=== PATIENT | female | born 1990 | race Two or more races ===

== ENCOUNTER 2022-12-25 19:16 | Emergency (ER) | payer MEDICAID ==
[~2022-12-25] VITALS: Ht 165.1 cm; Wt 91.0 kg
[~2022-12-25 19:16] MED LIST: ABILIFY; ALBUPOW26; CELEXA; LAM100T OR; QVAR; RISP2TAB62 OR; RISP3TAB44 OR; SERT100T OR
[2022-12-25] MEDS ORDERED: ONDANSETRON ODT 4 MG TAB PO ONE (19:45)
[2022-12-25] MEDS ORDERED: SODIUM CHLORIDE 0.9% 1,000 ML IV ONE (19:45)
[2022-12-25 20:23] LABS: Basophils # (auto) 0 10 ^3/uL (0-0.2); Basophils % (auto) 0.3 % (0.0-2.0); Eosinophils # (auto) 0.4 10 ^3/uL (0-0.8); Hemoglobin 13.1 g/dL (12.2-16.2); Monocytes # (auto) 0.7 10 ^3/uL (0-1.3)
[2022-12-25 20:26] LABS: Eosinophils % (auto) 3.2 % (0.0-7.0); Hematocrit 40.7 % (36.0-46.0); Mean Corpuscular Hgb Conc. 32.2 g/dL (32.0-36.0); Mean Corpuscular Volume 80.9 fL (80.0-100.0); Monocytes % (auto) 5.5 % (0.0-12.0); Neutrophils # (auto) 10.5 10 ^3/uL (1.6-8.6); Red Blood Cells 5.03 10^6/uL (4.0-5.20); Red Cell Distribution Width 17.2 % (11.8-14.3); White Blood Cell 12.7 10^3/uL (4.4-10.8)
[2022-12-25 20:38] LABS: Alanine Aminotransferase 67 U/L (7-40); Albumin 4.8 g/dL (3.2-4.8); Alkaline Phosphatase 57 U/L (46-116); Aspartate Aminotransferase 37 U/L (13-40); BUN/Creatinine Ratio 13.2 (10.0-20.0); Bilirubin, Total 0.4 mg/dL (0.2-1.0); Blood Urea Nitrogen 10 mg/dL (9-23); Calcium 9.2 mg/dL (8.5-10.1); Chloride 107 mmol/L (98-107); Glucose 94 mg/dL (74-106); Lipase 40 U/L (12-53); Magnesium 1.8 mg/dL (1.6-2.6); Potassium 3.6 mmol/L (3.5-5.1); Sodium 140 mmol/L (136-145)
[2022-12-25 22:37] LABS: Urine Bacteria FEW /hpf (None Seen); Urine Blood TRACE /uL (Negative); Urine Clarity Clear (Clear); Urine Color Yellow (Yellow); Urine Mucus FEW (None Seen); Urine Protein, UAD 1+ (Negative); Urine Specific Gravity 1.035 (1.001-1.035); Urine Urobilinogen Normal (Negative); Urine WBC 2 /hpf (0 - 5); Urine pH 5.5 (5.0-8.0)
[2022-12-26 00:34] LABS: COVID19 ANTIGEN SOFIA FIA NEGATIVE (NEGATIVE)
[2022-12-26] MEDS ORDERED: ZOFR4T PO (01:34)
[2022-12-26] MEDS ORDERED: CEPH500C PO (01:35)
[2022-12-26 03:00] VITALS: BP 114/60; PULSE 101; RESP 18; TEMP 98.9; O2SAT 99
== END 2022-12-26 03:04 | disposition home or self-care (01) ==
LOC: ER 19:16 → EDBD 19:16 → ER 12-26 03:04
DX: N39.0 Urinary tract infection, site not specified (principal); R10.2 Pelvic and perineal pain; R11.2 Nausea with vomiting, unspecified; R19.7 Diarrhea, unspecified; J45.909 Unspecified asthma, uncomplicated; Z79.899 Other long term (current) drug therapy; Z20.822 Contact with and (suspected) exposure to COVID-19
CPT/HCPCS: 36415; 80053; 81001; 81025; 83605; 83690; 83735; 84702; 85025; 87045; 87177; 87426; 87427; 96360; 96361; 99283; J7030; Q0162

== ENCOUNTER 2023-04-13 07:02 | Emergency (ER) | payer MEDICAID ==
[~2023-04-13] VITALS: Ht 162.6 cm; Wt 94.9 kg
[~2023-04-13 07:02] MED LIST changes: +CEPH500C PO; +ZOFR4T PO
[2023-04-13] MEDS ORDERED: ACET-1304 PO (07:53)
[2023-04-13 08:00] VITALS: BP 142/86; PULSE 81; RESP 18; TEMP 98.3; O2SAT 97
[2023-04-13] MEDS ORDERED: ACETAMINOPHEN 500 MG TAB PO ONE (08:00)
== END 2023-04-13 08:22 | disposition home or self-care (01) ==
LOC: ER 07:02
DX: H66.92 Otitis media, unspecified, left ear (principal); F41.9 Anxiety disorder, unspecified; F32.9 Major depressive disorder, single episode, unspecified; Z79.899 Other long term (current) drug therapy

== ENCOUNTER 2023-06-13 07:14 | Emergency (ER) | payer MEDICAID ==
[~2023-06-13] VITALS: Ht 162.6 cm; Wt 102.0 kg
[~2023-06-13 07:14] MED LIST changes: +ACET-1304 PO
[2023-06-13 08:22] LABS: Basophils # (auto) 0 10 ^3/uL (0-0.2); Eosinophils # (auto) 0.1 10 ^3/uL (0-0.8); Lymphocytes # (auto) 1.6 10 ^3/uL (0.4-5.4); Monocytes # (auto) 0.7 10 ^3/uL (0-1.3); Neutrophils % (auto) 86.2 % (37.0-80.0)
[2023-06-13 08:24] LABS: Basophils % (auto) 0.3 % (0.0-2.0); Eosinophils % (auto) 0.7 % (0.0-7.0); Hematocrit 38.8 % (36.0-46.0); Hemoglobin 12.7 g/dL (12.2-16.2); Mean Corpuscular Hgb Conc. 32.6 g/dL (32.0-36.0); Mean Corpuscular Volume 82.8 fL (80.0-100.0); Monocytes % (auto) 3.8 % (0.0-12.0); Neutrophils # (auto) 15.3 10 ^3/uL (1.6-8.6); Red Blood Cells 4.69 10^6/uL (4.0-5.20); White Blood Cell 17.8 10^3/uL (4.4-10.8)
[2023-06-13 08:34] LABS: Chloride 107 mmol/L (98-107); Potassium 4.4 mmol/L (3.5-5.1); Sodium 141 mmol/L (136-145)
[2023-06-13 08:35] LABS: Anion Gap 8 (5-15); Calcium 9.5 mg/dL (8.5-10.1); Carbon Dioxide 26 mmol/L (20-30)
[2023-06-13 08:40] LABS: BUN/Creatinine Ratio 12.2 (10.0-20.0); Blood Urea Nitrogen 9 mg/dL (9-23); Glucose 95 mg/dL (74-106)
[2023-06-13] MEDS: IOHEXOL 350 MG/ML 100ML IJ ONE (11:08)
[2023-06-13] MEDS ORDERED: AZIT1POW PO (11:39)
[2023-06-13] MEDS ORDERED: METH4PAK PO (11:41)
[2023-06-13] MEDS: AZITHROMYCIN 500MG/ 250ML 250 ML IV ONE (13:46)
[2023-06-13 16:13] VITALS: BP 110/77; PULSE 113; RESP 17; TEMP 99.1; O2SAT 96
== END 2023-06-13 16:16 | disposition home or self-care (01) ==
LOC: ER 07:14
DX: J18.9 Pneumonia, unspecified organism (principal); D72.829 Elevated white blood cell count, unspecified; J45.909 Unspecified asthma, uncomplicated
CPT/HCPCS: 36415; 71275; 80048; 84484; 85025; 85379; 93005; 96365; 96366; 99285; J0456; Q9967

== ENCOUNTER 2024-04-19 01:52 | Emergency (ER) | payer MEDICAID ==
[~2024-04-19] VITALS: Ht 162.6 cm; Wt 92.8 kg
[~2024-04-19 01:52] MED LIST changes: +AZIT1POW PO; +METH4PAK PO
[2024-04-19] MEDS ORDERED: PROM1SOL4 PO (03:07)
[2024-04-19] MEDS ORDERED: IBUP-1455 PO (03:07)
--- NOTE | 2024-04-19 03:08 | ED.PDOC ---
Eye-HPI HPI Comments 33-year-old female complaining of headache fever and sore throat x1 day. No new foods no new medications. No recent travel. States he has been having nonproductive cough and nasal congestion as well. [id number] [place] cold not helping. Chief Complaint: Sore Throat Time Seen by MD: 02:34 Primary Care Provider: ELAINE Reviewed Notes: Nurses Notes Allergies: Coded Allergies: NO KNOWN ALLERGIES (Unverified , 03/24/10) Home Meds Active Scripts Methylprednisolone (Medrol Dosepak) 4 Mg [place], 4 MG PO UD, #21 TAB UAD Prov:AMY MCGILL MD 06/13/23 Azithromycin (Zithromax) 1 Gm Pow, 1 PACK PO ONCE, #1 PACK Prov:AMY MCGILL MD 06/13/23 Acetaminophen (Tylenol Extra Strength Fo) 500 Mg Tab, 650 MG PO TID, #30 TAB Prov:REMINGTON RENDON 04/13/23 Cephalexin Monohydrate (Cephalexin) 500 Mg Cap, 500 MG PO Q8HR for 7 Days, #21 CAP Prov:RYAN ANTHONY DO 12/26/22 Ondansetron Odt 4MG Tab (ZOFRAN PO) 4 Mg Tb, 4 MG PO Q8HPRN PRN for 3 Days, #9 TAB ODT TAB-DISSOLVE IN MOUTH, THEN SWALLOW Prov:RYAN ANTHONY DO 12/26/22 Reported Medications Risperidone (Risperidone) 2 Mg Tab, 2 MG OR QHS 04/01/11 Risperidone (Risperidone) 3 Mg Tab, 3 MG OR BID 04/01/11 Sertraline Hcl (Zoloft) 100 Mg Tab, 100 MG OR QAM 04/01/11 Lamotrigine (Lamictal) 100 Mg Tab, 100 MG OR QHS 04/01/11 [Celexa] No Conflict Check 10/02/10 [Abilify] No Conflict Check 10/02/10 [Qvar] No Conflict Check 03/24/10 Albuterol (Albuterol) Pow 03/24/10 Information Source: Patient Mode of Arrival: Ambulatory Past Medical History PAST MEDICAL HISTORY: Anxiety, Asthma, Depression Surgical History: Hernia Repair 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 PLACEMENT COORDINATOR Hx Family History Family History: Family hx of DM, Family hx of Cancer Social History Smoker: Non-Smoker Alcohol: Denies ETOH Use Drugs: Denies Drug Use Lives In: Home Constitutional: reports: fever; denies: chills, diaphoresis, fatigue, malaise, sweats, weakness, others EENTM: reports: nose congestion, throat pain; denies: blurred vision, double vision, ear bleeding, ear discharge, ear drainage, ear pain, ear ringing, eye pain, eye redness, hearing loss, mouth pain, mouth swelling, nasal discharge, nose bleeding, nose pain, photophobia, tearing, throat swelling, voice changes, others Respiratory: reports: cough Cardiovascular: denies: chest pain, dizzy spells, diaphoresis, Dyspnea on exertion, edema, irregular heart beat, left arm pain, lightheadedness, palpitations, PND, syncope, others Gastrointestinal: denies: abdomen distended, abdominal pain, blood streaked bowels, constipated, diarrhea, dysphagia, difficulty swallowing, hematemesis, melena, nausea, poor appetite, poor fluid intake, rectal bleeding, rectal pain, vomiting, others Genitourinary: denies: abnormal vagina bleeding, burning, dyspareunia, dysuria, flank pain, frequency, hematuria, incontinence, pain, , vagina discharge, urgency, others Neurological: denies: dizziness, fainting, headache, left sided numbness, left sided weakness, numbness, paresthesia, pre-existing deficit, right sided numbness, right sided weakness, seizure, speech problems, tingling, tremors, weakness, others Musculoskeletal: denies: back pain, gout, joint pain, joint swelling, muscle pain, muscle stiffness, neck pain, others Integumetry: denies: bruises, change in color, change in hair/nails, dryness, laceration, lesions, lumps, rash, wounds, others Allergic/Immunocompromised: denies: Difficulty Healing, Frequent Infections, Hives, Itching, others Hematologic/Lymphatic: denies: anemia, blood clots, easy bleeding, easy bruising, swollen glands, others Physical Exam General Appearance: No Apparent Distress, Normal HEENT: Normal ENT Inspection, Pharynx Normal, TMs Normal Neck: Full Range of Motion, Non-Tender, Normal, Normal Inspection Respiratory: Chest Non-Tender, Lungs Clear, No Accessory Muscle Use, No Respiratory Distress, Normal Breath Sounds Cardiovascular: No Edema, No JVD, No Murmur, No Gallop, Normal Peripheral Pulses, Regular Rate/Rhythm Breast Exam: Deferred Gastrointestinal: No Organomegaly, Non Tender, No Pulsatile Mass, Normal Bowel Sounds, Soft Genitalia: Deferred Pelvic: Deferred Rectal: Deferred Extremities: No calf tenderness, Normal capillary refill, Normal inspection, Normal range of motion, Non-tender, No pedal edema Musculoskeletal : Apperance: Normal Neurologic: Alert, blister pack operator II-XII nml as Tested, No Motor Deficits, Normal Affect, Normal Mood, No Sensory Deficits Cerebellar Function: Normal Reflexes: Normal Skin: Dry, Normal Color, Warm Lymphatic: No Adenopathy Was a procedure done? Was a procedure done?: No EENT DIFF Eye: N/A Ear: Otitis Media Sore Throat: Peritonsillar Abscess, Peritonsillar Cellulitis, Pharyngitis X-Ray, Labs, Meds, VS Vital Signs Date Time Temp Pulse Resp B/P (MAP) Pulse Ox O2 Delivery O2 Flow Rate FiO2 04/19/24 02:40 97.8 100 18 130/86 (101) 97 X-Ray, Labs, Meds, VS Comment Imaging: X-rays and CT scans were reviewed and interpreted by this provider, imaging shows no fractures and no pathological disease. Pending radiology review. Laboratory: Labs reviewed and interpreted by this provider. No significant abnormalities noted. Patient has prior medical visits reviewed. Med reconciliation performed Vital signs reviewed Time of 1ST Reevaluation: 03:07 Reevaluation 1ST: Improved Patient Education/Counseling: Diagnosis, Treatment, Need For Follow Up (Patient advised to follow-up in the emergency room in the next 24 to 48 hours if symptoms do not improve. Advised follow-up with PCP in the next 3 to 5 days. Patient verbalized understanding. ) Family Education/Counseling: Diagnosis, Treatment Departure 1 Departure Time of Disposition: 03:06 Impression: Primary Impression: Pharyngitis with viral syndrome Disposition: HOME / SELF CARE / HOMELESS Condition: Fair e-Prescriptions Promethazine-Dm (Promethazine Dm 6.25-15 mg/5Ml) 1 Barbara Barbara 5 ML PO TID PRN, #240 ML Prov: WILLIE GARCIA SHELL ASSEMBLER 04/19/24 Ibuprofen Micronized (Ibuprofen) 800 Mg Tab 800 MG PO TID PRN, #30 TAB Prov: GARCIAWILLIE WALKER 04/19/24 Discharged With: Self Critical Care Note Critical Care Time?: No Stability Stability form required: No Heart Score Heart Score: Heart Score Response (Comments) Value History N/A 0 EKG N/A 0 Age N/A 0 Risk Factors N/A 0 Troponin N/A 0 Total 0 WILLIE GARCIA Apr 19, 2024 03:08
[2024-04-19 06:18] LABS: Rapid Influenza A Negative (Negative); Rapid Influenza B Negative (Negative)
[2024-04-19 06:19] LABS: COVID19 ANTIGEN SOFIA FIA NEGATIVE (NEGATIVE)
[2024-04-19 07:47] VITALS: BP 157/86; PULSE 110; RESP 17; TEMP 99; O2SAT 95
== END 2024-04-19 07:41 | disposition home or self-care (01) ==
LOC: ER 01:52
DX: B34.9 Viral infection, unspecified (principal); J02.9 Acute pharyngitis, unspecified; J45.909 Unspecified asthma, uncomplicated; F41.9 Anxiety disorder, unspecified; F32.A Depression, unspecified; Z79.51 Long term (current) use of inhaled steroids; Z79.899 Other long term (current) drug therapy; Z98.890 Other specified postprocedural states; Z20.822 Contact with and (suspected) exposure to COVID-19
CPT/HCPCS: 36415; 87426; 87804

== ENCOUNTER 2025-04-10 06:15 | Inpatient (IN) | payer MEDICAID ==
[~2025-04-10] VITALS: Ht 165.1 cm; Wt 93.3 kg
[~2025-04-10 06:15] MED LIST changes: +IBUP-1455 PO; +PROM1SOL4 PO
--- NOTE | 2025-04-10 06:46 | ED.PDOC ---
SOB-HPI HPI Comments This is a 34 year old female presenting to the ED with chief complaint of SOB. Patient reports that she has been experiencing SOB for the past week. Patient relays that she has history of asthma, but since changing PCPs, she has been unable to get another inhaler prescription. Patient denies any chest pain, fever, chills, N/V/D, or abdominal pain. 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 MACHINERY RIGGER Hx Family History Family History: Reviewed,noncontributory to illness, Family hx of DM, Family hx of Cancer Social History Smoker: Non-Smoker Alcohol: Denies ETOH Use Drugs: Denies Drug Use Lives In: Home Constitutional: denies: chills, diaphoresis, fatigue, fever, malaise, sweats, weakness, others EENTM: denies: blurred vision, double vision, ear bleeding, ear discharge, ear drainage, ear pain, ear ringing, eye pain, eye redness, hearing loss, mouth pain, mouth swelling, nasal discharge, nose bleeding, nose congestion, nose pain, photophobia, tearing, throat pain, throat swelling, voice changes, others Respiratory: reports: shortness of breath; denies: cough, hemoptysis, orthopnea, SOB at rest, SOB with excertion, stridor, wheezing, others Cardiovascular: denies: chest pain, dizzy spells, diaphoresis, Dyspnea on exertion, edema, irregular heart beat, left arm pain, lightheadedness, palpitations, PND, syncope, others Gastrointestinal: denies: abdomen distended, abdominal pain, blood streaked bowels, constipated, diarrhea, dysphagia, difficulty swallowing, hematemesis, melena, nausea, poor appetite, poor fluid intake, rectal bleeding, rectal pain, vomiting, others Genitourinary: denies: abnormal vagina bleeding, burning, dyspareunia, dysuria, flank pain, frequency, hematuria, incontinence, pain, , vagina discharge, urgency, others Neurological: denies: dizziness, fainting, headache, left sided numbness, left sided weakness, numbness, paresthesia, pre-existing deficit, right sided numbness, right sided weakness, seizure, speech problems, tingling, tremors, weakness, others Musculoskeletal: denies: back pain, gout, joint pain, joint swelling, muscle pain, muscle stiffness, neck pain, others Integumetry: denies: bruises, change in color, change in hair/nails, dryness, laceration, lesions, lumps, rash, wounds, others Allergic/Immunocompromised: denies: Difficulty Healing, Frequent Infections, Hives, Itching, others Hematologic/Lymphatic: denies: anemia, blood clots, easy bleeding, easy bruising, swollen glands, others Endocrine: denies: excessive hunger, excessive sweating, excessive thirst, excessive urination, flushing, intolerance to cold, intolerance to heat, unexplained weight gain, unexplained weight loss, others Psychiatric: denies: anxiety, bipolar disorder, depression, hopeless, panic disorder, schizophrenia, sleepless, suicidal, others All Other Systems: Reviewed and Negative Physical Exam General Appearance: Moderate Distress, Normal HEENT: Normal ENT Inspection, Pharynx Normal, TMs Normal Neck: Full Range of Motion, Non-Tender, Normal, Normal Inspection Respiratory: Chest Non-Tender, No Accessory Muscle Use, No Respiratory Distress, Other (Coarse breath sounds) Cardiovascular: No Edema, No JVD, No Murmur, No Gallop, Normal Peripheral Pulses, Regular Rate/Rhythm Breast Exam: Deferred Gastrointestinal: No Organomegaly, Non Tender, No Pulsatile Mass, Normal Bowel Sounds, Soft Genitalia: Deferred Pelvic: Deferred Rectal: Deferred Extremities: No calf tenderness, Normal capillary refill, Normal inspection, Normal range of motion, Non-tender, No pedal edema Musculoskeletal : Apperance: Normal Neurologic: Alert, eap clinician II-XII nml as Tested, No Motor Deficits, Normal Affect, Normal Mood, No Sensory Deficits Cerebellar Function: Normal Reflexes: Normal Skin: Dry, Normal Color, Warm Peripheral Pulses: 3+ Radial (R), 3+ Radial (L) Lymphatic: No Adenopathy Was a procedure done? Was a procedure done?: No Differential Dx Differential Diagnosis: Anxiety, Asthma, Bronchitis, Pneumonia, URI X-Ray, Labs, Meds, VS Vital Signs Date Time Temp Pulse Resp B/P (MAP) Pulse Ox O2 Delivery O2 Flow Rate FiO2 04/10/25 06:17 98.2 154 22 132/88 95 98.2 Lab Test 04/10/25 06:51 Range/Units D-Dimer, Quantitative 1.43 H 0.0-0.49 mg/L FEU Patient alert pain Complaining of shortness a breath. Saturation pristine on room air. Moving air. She mentally challenged. Chronic condition. Explained to the patient. Continue monitoring. [place] [address] Ph: [phone] DIAGNOSTIC IMAGING Diagnostic Imaging Report : [id number] Signed PATIENT: AYLA BORDEN ACCT: [id number] UNIT: [id number] : 1990 LOC: ER ROOM / BED: / AGE / SEX: 34 / F ADM STATUS: REG ER SERVICE 7 ORDERING PHYSICIAN: KRISTY RAMACHANDRAN MD PROCEDURE(s): CXRP - CHEST PORTABLE REASON: sob ORDER NUMBER(s): [id number], ACCESSION NUMBER(s): [id number] CHEST RADIOGRAPH INDICATION: sob TECHNIQUE: Single frontal view of the chest was obtained. COMPARISON: CT CT ANGIO CHEST CONTRAST on DOS: 06/13/23 FINDINGS: No focal consolidation. No significant pleural effusion. No pneumothorax. Stable cardiomediastinal silhouette. IMPRESSION: No acute pulmonary process. ATED BY: MORGAN BUCKNER MD DICTATED DATE/TIME: 04/10/25738 SIGNED BY: MORGAN BUCKNER MD SIGNED DATE/TIME: 04/10/25738 CC: Images Reviewed?: Images reviewed and evaluated by me Time of 1ST Reevaluation: 07:45 Reevaluation 1ST: Improved Patient Education/Counseling: Diagnosis, Treatment Family Education/Counseling: Diagnosis, Treatment SEPSIS Sepsis Screen Date sepsis recognized/suspect: Apr 10, 2025 Time Sepsis recognized/suspect: 620 Recent Procedure: No On Antibiotic Therapy: No Respiratory Rate >20: Yes Heart Rate >90: Yes Temp<36 C (96.8 F) or >38.3 C: No SBP <90 or MAP <65 mmHG: No New Acute Mental Status Change: No Is the patient on CPAP, BIPAP,: No Physician Orders Chest Portable (04/10/25 06:38) Complete Blood Count (04/10/25 08:04) Urinalysis (04/10/25 08:04) Basic Metabolic Panel (04/10/25 08:04) Ct Angio Chest Contrast (04/10/25 08:04) Vital Signs Date Time Temp Pulse Resp B/P (MAP) Pulse Ox O2 Delivery O2 Flow Rate FiO2 04/10/25 06:17 98.2 154 22 132/88 95 98.2 Departure 1 Departure Time of Disposition: 07:20 Impression: Primary Impression: Pneumonitis Additional Impression: Asthma exacerbation Qualified Codes: J45.41 - Moderate persistent asthma with (acute) exacerbation Disposition: ADMITTED INPATIENT Admit to: Med Surg Condition: Guarded Critical Care Note Critical Care Time?: No Stability Stability form required: No Heart Score Heart Score: Heart Score Response (Comments) Value History N/A 0 EKG N/A 0 Age N/A 0 Risk Factors N/A 0 Troponin N/A 0 Total 0 I personally scribed for KRISTY RAMACHANDRAN MD ([email or web address]) on 04/10/25 at 06:46. Electronically submitted by Mikey Esquivel ([email or web address]). I personally scribed for KRISTY RAMACHANDRAN MD ([email or web address]) on 04/10/25 at 07:57. Electronically submitted by Mikey Esquivel ([email or web address]). KRISTY RAMACHANDRAN MD Apr 10, 2025 06:46
--- NOTE | 2025-04-10 07:41 | DVH ---
CHEST RADIOGRAPH INDICATION: sob TECHNIQUE: Single frontal view of the chest was obtained. COMPARISON: CT CT ANGIO CHEST CONTRAST on DOS: 06/13/23 FINDINGS: No focal consolidation. No significant pleural effusion. No pneumothorax. Stable cardiomediastinal silhouette. IMPRESSION: No acute pulmonary process.
[2025-04-10 08:11] LABS: Hematocrit 35.2 % (36.0-46.0); Hemoglobin 11.4 g/dL (12.2-16.2)
[2025-04-10 08:12] LABS: Chloride 102 mmol/L (98-107); Potassium 3.8 mmol/L (3.5-5.1); Sodium 140 mmol/L (136-145)
[2025-04-10 08:13] LABS: Anion Gap 11 (5-15); Calcium 9.3 mg/dL (8.7-10.4); Carbon Dioxide 27 mmol/L (20-31); Mean Corpuscular Hemoglobin 24.7 pg (28.0-32.0); Mean Corpuscular Volume 76.5 fL (80.0-100.0); Nucleated Red Blood Cells % 0.0 %
[2025-04-10 08:18] LABS: BUN/Creatinine Ratio 8.0 (10.0-20.0); Blood Urea Nitrogen 6 mg/dL (9-23); Glucose 122 mg/dL (74-106)
[2025-04-10] MEDS: ACETAMINOPHEN 325 MG TAB PO ONE (08:34)
[2025-04-10] MEDS: ALBUTEROL SULF 2.5 MG/0.5ML(0.5%) NEB SOLN NEB ONE (08:36)
[2025-04-10] MEDS: IPRATROPIUM BROM 0.5 MG/2.5ML INH SOL NEB ONE (08:36)
[2025-04-10] MEDS: SODIUM CHLORIDE 0.9% 1,000 ML IV ONE ×2 (08:55→11:35)
[2025-04-10] MEDS: AZITHROMYCIN 500MG/250ML 250 ML IV ONE (09:28)
[2025-04-10] MEDS ORDERED: MORPHINE SULFATE INJ 2 MG/ml SYRG IV PRN (09:45)
[2025-04-10] MEDS: IOHEXOL 350 MG/ML 100ML IJ ONE (09:45)
[2025-04-10] MEDS ORDERED: ONDANSETRON HCL 4 MG/2 ML VIAL IV PRN (09:45)
[2025-04-10] MEDS ORDERED: NITROGLYCERIN 0.4 MG SL TAB SL PRN (09:45)
[2025-04-10] MEDS: ALBUTEROL SULF 2.5 MG/0.5ML(0.5%) NEB SOLN NEB SCH (10:00)
[2025-04-10 10:16] LABS: Urine Protein, UAD Negative (Negative)
[2025-04-10 10:21] LABS: Alanine Aminotransferase 29 U/L (7-40); Albumin 4.5 g/dL (3.2-4.8); Alkaline Phosphatase 71 U/L (46-116); Total Protein 7.8 g/dL (5.7-8.2)
[2025-04-10 10:22] LABS: Bilirubin, Direct < 0.1 mg/dL (<0.3); Bilirubin, Total 0.3 mg/dL (0.2-1.0)
--- NOTE | 2025-04-10 10:27 | DVH ---
CT angiogram of the chest INDICATION: Shortness of breath. Rule out pulmonary embolism TECHNIQUE: Serial axial images were performed through the chest using 3 mm slice thickness and interval following the administration of 100 mL of Omnipaque 350 IV contrast. Multiplanar MIP reconstruction imaging was provided and reviewed at the workstation FINDINGS: On lung windows there is some infiltrate present in the right middle lobe and in the left lower lobe The heart size is enlarged without pericardial effusion No filling defects in the central branches of the pulmonary arteries. No enlarged axillary hilar or mediastinal lymph nodes. Images of the upper abdomen reveal no bony abnormalities IMPRESSION: 1. No central pulmonary emboli 2. Right middle lobe and left lower lobe infiltrates. Computed Tomographic Radiation Dosimetry Report: Total CTDI vol = 26 mGy Total DLP = 870 mGy-cm All CT scans at this medical facility are performed using dose modulation techniques as appropriate to a performed exam including the following: Automated exposure control was utilized; adjustment of the MA and/or KvP according to patient size; and use of iterative reconstruction technique.
[2025-04-10 10:29] LABS: Opiate Scree,Urine Neg (NEGATIVE)
[2025-04-10 10:37] LABS: Amphetamine Screen, Urine Neg (NEGATIVE); Barbiturate Scree,Urine Neg (NEGATIVE); Benzodiazephine Screen, Urine Neg (NEGATIVE); Cannabinoid Screen, Urine Neg (NEGATIVE); Cocaine Screen, Urine Neg (NEGATIVE); Phencyclidine Screen, Urine Neg (NEGATIVE)
[2025-04-10 10:44] VITALS: BP 115/68; PULSE 145; RESP 26; TEMP 98.9; O2SAT 96
--- NOTE | 2025-04-10 10:51 | DVHHPRES ---
History of Present Illness Resident Creating Document: CARLOS NEWBERRY RESIDENT History of Present Illness Ms. Carolina Proctor 34 years old female with history of asthma and bilateral clubfoot presents with respiratory symptoms following a recent cold for 1 week. The patient developed a cold last week which initially began to subside but worsened again. Last night she developed acute onset of shortness of Breath along with ongoing cold symptoms. Patient reported having SOB, runny nose, swollen nasal passages, chest congestion, mild sore throat and cough with clear phlegm. 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 Patient reported that she has been living with the Grandmother in his. , who also currently sick with a cold representing a potential sick contact. She has a history of asthma that typically flares during flu season advance pollen levels are high but she has not been using inhaler. PMH: Asthma and bilateral clubfoot PSH: Not significant Family history: Blood clots in grandfather Social history: Lives at home. Denies smoking, alcohol and other drug abuse Allergies: No known allergies Home medications: Occasionally Tylenol, Robitussin and ibuprofen ROS: Patient seen and examined at the bedside in the ER. Patient is currently positive for SOB, cough with clear phlegm, sore throat and runny nose but rest of ROS is negative Review of Systems Allergies: Coded Allergies: NO KNOWN ALLERGIES (Unverified , 03/24/10) Medications Current Medications Medications Dose Ordered Sig/Kayla Route Start Time Stop Time Status Last Admin Dose Admin Sodium Chloride 10 ml Q8HR IV 04/10/25 14:00 Ondansetron HCl 4 mg Q4HP PRN IV 04/10/25 09:45 Enoxaparin Sodium 40 mg DAILY SC 04/10/25 10:00 Acetaminophen 650 mg Q6HP PRN PO 04/10/25 09:45 Nitroglycerin 0.4 mg Q5MINP PRN SL 04/10/25 09:45 Morphine Sulfate 2 mg Q30M PRN IV 04/10/25 09:45 Albuterol 2.5 mg Q4HWA NEB 04/10/25 10:00 Ipratropium [place] 0.5 mg Q6HPRN PRN NEB 04/10/25 09:45 Methylprednisolone Sodium Succinate 40 mg DAILY IV 04/10/25 10:00 Azithromycin 250 ml @ 125 mls/hr DAILY IV 04/11/25 10:00 Sodium Chloride 1,000 ml @ 75 mls/hr [id number] IV 04/10/25 10:45 UNV Exam Vital Signs Vital Signs Date Time Temp Pulse Resp B/P (MAP) Pulse Ox O2 Delivery O2 Flow Rate FiO2 04/10/25 10:44 98.9 145 26 115/68 96 0.0 21 98.9 04/10/25 08:37 Room Air* Exam Pt is lying on bed General Appearance: Alert, Oriented X3, Cooperative, Moderate distress HEENT: Atraumatic, Mucous membranes moist/pink Respiratory: Clear to auscultation, Normal air movement, No added sounds Cardiovascular: Regular rate, Normal S1, Normal S2, No murmurs Abdominal: Active bowel sounds, Soft, no distention, no tenderness Extremities: No edema, Normal pulses, No tenderness/swelling, clubfoot deformity Skin: No Significant rash, except past surgical scars Neuro: Normal speech, sensorimotor deficits none Psych/Mental Status: Mental status NL, Mood NL Nurse was there as clinical project manager during examination Labs/Xrays Labs Test 04/10/25 10:17 04/10/25 09:04 04/10/25 08:55 04/10/25 06:51 Range/Units Urine Color Yellow Yellow Urine Clarity Clear Clear Urine pH 8.0 5.0-9.0 Urine Specific [place] 1.020 1.001-1.035 Urine Protein Negative Negative Urine Ketones Negative Negative Urine Blood 1+ H Negative /uL Urine Nitrite Negative Negative Urine Bilirubin Negative Negative Urine Urobilinogen Normal Negative mg/dL Urine Leukocyte Esterase Negative Negative /uL Urine RBC 9 0 - 4 /hpf Urine Microscopic WBC 1 0-5 /HPF Urine Squamous Epithelial Cells Few <5 /hpf Urine Bacteria None seen None Seen /hpf Urine Glucose Normal Normal mg/dL Urine Test Negative Negative Urine Opiates Screen Neg NEGATIVE Urine Fentanyl Screen Neg NEGATIVE Urine Barbiturates Screen Neg NEGATIVE Urine Phencyclidine Screen Neg NEGATIVE Urine Amphetamines Screen Neg NEGATIVE Urine Benzodiazepines Screen Neg NEGATIVE Urine Cocaine Screen Neg NEGATIVE Urine Cannabinoids Screen Neg NEGATIVE Lactic Acid Level 1.6 0.4-2.0 mmol/L White Blood Count 16.5 H 4.4-10.8 10^3/uL Red Blood Count 4.61 4.0-5.20 10^6/uL Hemoglobin 11.4 L 12.2-16.2 g/dL Hematocrit 35.2 L 36.0-46.0 % Mean Corpuscular Volume 76.5 L 80.0-100.0 fL Mean Corpuscular Hemoglobin 24.7 L 28.0-32.0 pg Mean Corpuscular Hemoglobin Concent 32.3 32.0-36.0 g/dL Red Cell Distribution Width 17.5 H 11.8-14.3 % Platelet Count 384 140-450 10^3/uL Mean Platelet Volume 8.3 6.9-10.8 fL Neutrophils (%) (Auto) 91.6 H 37.0-80.0 % Lymphocytes (%) (Auto) 4.7 L 10.0-50.0 % Monocytes (%) (Auto) 2.9 0.0-12.0 % Eosinophils (%) (Auto) 0.5 0.0-7.0 % Basophils (%) (Auto) 0.3 0.0-2.0 % Neutrophils # (Auto) 15.1 H 1.6-8.6 10 ^3/uL Lymphocytes # (Auto) 0.8 0.4-5.4 10 ^3/uL Monocytes # (Auto) 0.5 0-1.3 10 ^3/uL Eosinophils # (Auto) 0.1 0-0.8 10 ^3/uL Basophils # (Auto) 0 0-0.2 10 ^3/uL Nucleated Red Blood Cells 0.0 % D-Dimer, Quantitative 1.43 H 0.0-0.49 mg/L FEU Sodium Level 140 136-145 mmol/L Potassium Level 3.8 3.5-5.1 mmol/L Chloride Level 102 98-107 mmol/L Carbon Dioxide Level 27 20-31 mmol/L Anion Gap 11 5-15 Blood Urea Nitrogen 6 L 9-23 mg/dL Creatinine 0.75 0.550-1.02 mg/dL Glomerular Filtration Rate Calc 108 >90 mL/min BUN/Creatinine Ratio 8.0 L 10.0-20.0 Serum Glucose 122 H 74-106 mg/dL Calcium Level 9.3 8.7-10.4 mg/dL Total Bilirubin 0.3 0.2-1.0 mg/dL Direct Bilirubin < 0.1 <0.3 mg/dL Aspartate Amino Transferase (AST) 23 13-40 U/L Alanine Aminotransferase (ALT) 29 7-40 U/L Alkaline Phosphatase 71 46-116 U/L Total Protein 7.8 5.7-8.2 g/dL Albumin 4.5 3.2-4.8 g/dL SEPSIS Sepsis Screen Date sepsis recognized/suspect: Apr 10, 2025 Time Sepsis recognized/suspect: 620 Recent Procedure: No On Antibiotic Therapy: No Respiratory Rate >20: Yes Heart Rate >90: Yes Temp<36 C (96.8 F) or >38.3 C: No SBP <90 or MAP <65 mmHG: No New Acute Mental Status Change: No Is the patient on CPAP, BIPAP,: No Physician Orders Chest Portable (04/10/25 06:38) Ct Angio Chest Contrast (04/10/25 08:04) Blood Culture (04/10/25 08:34) Sodium Chloride 0.9% (04/10/25 08:45) Admit (04/10/25 09:45) Allergies (04/10/25 09:45) Sodium Chloride Lock (Saline Lock Ns) (04/10/25 14:00) Oxygen Per Hour (04/10/25 09:45) Ondansetron Hcl (Zofran) (04/10/25 09:45) Enoxaparin Sodium (Lovenox) (04/10/25 10:00) Complete Blood Count (04/11/25 04:00) Comprehensive Metabolic Panel (04/11/25 04:00) Condition: Fair (04/10/25 09:45) Acetaminophen Tablet (Tylenol Tablet) (04/10/25 09:45) Nitroglycerin Sublingual (Ntrostat Subli (04/10/25 09:45) Morphine Sulfate Injection (04/10/25 09:45) Oxygen By Nasal Cannula (04/10/25 09:45) Stat Ekg For Chest Pain (04/10/25 09:45) Notify Of Changes From Base (04/10/25 09:45) Manager Of Medical For 24 Hours (04/10/25 09:45) Emergency Dysrhythmia Protocol (04/10/25 09:45) Rhythm Strips Once Every Shift (04/10/25 09:45) Respiratory Culture W/ Gs (04/10/25 09:45) Covid19 Antigen [place] (04/10/25 09:45) Rapid Influenza A&B (04/10/25 09:45) Albuterol Medneb (Ventolin Medneb) (04/10/25 10:00) Ipratropium Medneb (Atrovent Medneb) (04/10/25 09:45) Methylprednisolone Sod Succ (Solu Medrol (04/10/25 10:00) Azithromycin 500mg/250ml (Zithromax 500m (04/11/25 10:00) Lactic Acid W/ Reflex Order (04/10/25 10:37) Vitamin D, 25-Hydroxy (04/10/25 10:37) Sodium Chloride 0.9% (04/10/25 10:45) Vital Signs Date Time Temp Pulse Resp B/P (MAP) Pulse Ox O2 Delivery O2 Flow Rate FiO2 04/10/25 10:44 98.9 145 26 115/68 96 0.0 21 98.9 04/10/25 10:28 98.9 145 26 115/68 (84) 98 98.9 04/10/25 09:46 99.6 04/10/25 08:37 18 95 Room Air* 0 21 04/10/25 08:34 100.8 04/10/25 08:21 100.8 144 18 119/79 (92) 95 100.8 04/10/25 08:21 144 18 95 Room Air 04/10/25 06:17 98.2 154 22 132/88 95 98.2 Laboratory Tests Test 04/10/25 06:51 04/10/25 08:55 White Blood Count 16.5 10^3/uL (4.4-10.8) H Lactic Acid Level 1.6 mmol/L (0.4-2.0) Medications Medications Dose Ordered Sig/Kayla Route Start Time Stop Time Status Last Admin Dose Admin Acetaminophen 650 mg ONCE ONCE PO 04/10/25 08:30 04/10/25 08:31 DC 04/10/25 08:34 650 MG Albuterol 5 mg ONCE ONCE NEB 04/10/25 08:15 04/10/25 08:16 DC 04/10/25 08:36 5 MG Azithromycin 250 ml @ 125 mls/hr ONCE ONCE IV 04/10/25 08:45 04/10/25 10:44 DC 04/10/25 09:28 125 MLS/HR Ceftriaxone Sodium 50 ml @ 100 mls/hr ONCE ONCE IV 04/10/25 08:45 04/10/25 09:14 DC 04/10/25 09:12 100 MLS/HR Ipratropium [place] 0.5 mg ONCE ONCE NEB 04/10/25 08:15 04/10/25 08:16 DC 04/10/25 08:36 0.5 MG Sodium Chloride 1,000 ml @ 1,000 mls/hr Q1H ONCE IV 04/10/25 08:45 04/10/25 09:44 DC 04/10/25 08:55 1,000 MLS/HR Assessment/Plan Assessment/Plan Sepsis likely from below Acute asthma exacerbation Acute Gram-positive /negative bacterial PNA Acute Bronchitis Rule out COVID/flu Ruled out pulmonary embolism Plan: IV fluids with the sepsis protocol Elevated D-dimer CT angio, no PE but R middle lobe and L lower lobe infiltrates Pending rapid test Azithromycin Methylprednisolone 40 mg IV daily Med-nebs Respiratory and blood cultures vitamin-D # Vit D deficiency - Repleting PPx Lovenox Regular diet Goals of care addressed with the patient for more than 27 minutes: Full code status Case discussed with Dr. Gifford ,patient and nurse Plan discussed with: Patient My Orders Orders - CARLOS NEWBERRY RESIDENT Procedure Category Date Status Time Admit ADMIT 04/10/25 Transmitted 09:45 Allergies [facility]IA 04/10/25 In Process 09:45 Sodium Chloride Lock PHA 04/10/25 In Process (Saline Lock Ns) 14:00 Oxygen Per Hour RT 04/10/25 Transmitted 09:45 Ondansetron Hcl PHA 04/10/25 In Process (Zofran) 09:45 Enoxaparin Sodium PHA 04/10/25 In Process (Lovenox) 10:00 Complete Blood Count LAB 04/11/25 Verified 04:00 Comprehensive LAB 04/11/25 Verified Metabolic Panel 04:00 Condition: Fair SAMIA 04/10/25 In Process 09:45 Acetaminophen Tablet PHA 04/10/25 In Process (Tylenol Tablet) 09:45 Nitroglycerin PHA 04/10/25 In Process Sublingual (Ntrostat 09:45 Morphine Sulfate PHA 04/10/25 In Process Injection 09:45 Oxygen By Nasal RT 04/10/25 Transmitted Cannula 09:45 Stat Ekg For Chest [facility]IA 04/10/25 In Process Pain 09:45 Notify Md Of Changes [facility] 04/10/25 In Process From Base 09:45 Manager Of Medical For [facility]IA 04/10/25 In Process 24 Hours 09:45 Emergency Dysrhythmia [facility] 04/10/25 In Process Protocol 09:45 Rhythm Strips Once [facility] 04/10/25 In Process Every Shift 09:45 Respiratory Culture URBI 04/10/25 Logged W/ Gs 09:45 Covid19 Antigen [place] LAB 04/10/25 In Process 09:45 Rapid Influenza A&B LAB 04/10/25 In Process 09:45 Albuterol Medneb PHA 04/10/25 In Process (Ventolin Medneb) 10:00 Ipratropium Medneb PHA 04/10/25 In Process (Atrovent Medneb) 09:45 Methylprednisolone PHA 04/10/25 In Process Sod Succ (Solu Medrol 10:00 Azithromycin PHA 04/11/25 In Process 500mg/250ml 10:00 Lactic Acid W/ Reflex LAB 04/10/25 Logged Order 10:37 Vitamin D, 25-Hydroxy LAB 04/10/25 In Process 10:37 Sodium Chloride 0.9% PHA 04/10/25 Logged 10:45 Visit Coding STANDARD RES Billing Provider: YURIY GIFFORD MD Date of Service if different f: Apr 10, 2025 Common Visit Codes: [id number] INP/OBS CARE (HIGH) Secondary Visit Codes: [id number] CARE PLAN 30 MINUTES CARLOS NEWBERRY RESIDENT Apr 10, 2025 10:51 YURIY GIFFORD MD Apr 11, 2025 08:00
[2025-04-10 11:38] LABS: COVID19 ANTIGEN SOFIA FIA NEGATIVE (NEGATIVE)
[2025-04-10 11:44] LABS: Lactic Acid w/Reflex 2.2 mmol/L (0.4-2.0)
[2025-04-10] MEDS: ENOXAPARIN SOD 40 MG/0.4 ML SYRINGE SC SCH (12:05)
[2025-04-10] MEDS: ERGOCALCIFEROL 50,000 UNIT(1.25MG) CAP PO SCH (12:05)
[2025-04-10] MEDS: SODIUM CHLORIDE 0.9% 1,650 ML IV ONE (12:05)
[2025-04-10] MEDS: methylPREDNISolone SOD SUCC 40 MG/ML VL IV SCH (12:05)
[2025-04-10] MEDS: SODIUM CHLOR 0.9% PF (SALINE LOCK) 10ML VIAL/SYR IV SCH (14:04)
[2025-04-10] MEDS: SODIUM CHLORIDE 0.9% 1,000 ML IV SCH (15:04)
[2025-04-10 18:03] VITALS: BP 125/78; PULSE 87; RESP 18; TEMP 97.4; O2SAT 97
[2025-04-10 20:00] VITALS: RESP 18
[2025-04-10 21:00] VITALS: BP 136/84; PULSE 127; RESP 19; TEMP 98; O2SAT 97
[2025-04-10 22:04] VITALS: O2SAT 97
[2025-04-11] VITALS (14 sets, daily range): BP systolic 123–138; BP diastolic 70–96; PULSE 86–136; RESP 16–20; TEMP 97–98.1; O2SAT 96–100
[2025-04-11] MEDS: IPRATROPIUM BROM 0.5 MG/2.5ML INH SOL NEB PRN (00:44)
[2025-04-11 06:25] LABS: Hematocrit 31.1 % (36.0-46.0); Hemoglobin 10.0 g/dL (12.2-16.2); Mean Corpuscular Hemoglobin 24.6 pg (28.0-32.0); Mean Corpuscular Volume 76.7 fL (80.0-100.0); Nucleated Red Blood Cells % 0.0 %
[2025-04-11 06:46] LABS: Alanine Aminotransferase 28 U/L (7-40); Albumin 4.0 g/dL (3.2-4.8); Alkaline Phosphatase 67 U/L (46-116); Anion Gap 11 (5-15); BUN/Creatinine Ratio 13.3 (10.0-20.0); Carbon Dioxide 23 mmol/L (20-31); Chloride 106 mmol/L (98-107); Potassium 3.8 mmol/L (3.5-5.1); Sodium 140 mmol/L (136-145); Total Protein 7.2 g/dL (5.7-8.2)
[2025-04-11 06:48] LABS: Bilirubin, Total 0.3 mg/dL (0.2-1.0); Blood Urea Nitrogen 8 mg/dL (9-23); Calcium 8.5 mg/dL (8.7-10.4); Glucose 107 mg/dL (74-106)
[2025-04-11 10:29] LABS: Magnesium 2.1 mg/dL (1.6-2.6)
--- NOTE | 2025-04-11 10:32 | DVHPNRES ---
Progress Note Date Seen: Apr 11, 2025 Resident Creating Document: TSERING GARCIA RESIDENT Has the PT tested + for MRSA If YES, has PT been informed?: No Medical Necessity Reason Pt with a Central, PICC or Fol: No Subjective Review of Systems Ms. Carolina Peterson is a 34 years old female with history of childhood asthma and bilateral clubfoot. The patient came to the [facility] with chief complaint of 3 days of shortness of breath and wet cough. On further questioning, the patient reported that 1 week ago she had flu like symptoms: wet cough, runny nose and chills. She also reported chronic foot swelling for related to her bilateral clubfoot condition but notes her current swelling is different from her baseline. Patient reported sick contact (her grandmother has flu like symptoms as well). She has a history of asthma that typically flares during flu season advance pollen levels are high but she has not been using inhaler. De patient denies chest pain, palpitation, abdominal pain, nausea, vomit, diarrhea or other symptoms. The patient was admitted for further diagnosed and management. PMH: Asthma and bilateral clubfoot PSH: Not significant Family history: Blood clots in grandfather Social history: Lives at home. Denies smoking, alcohol and other drug abuse Allergies: No known allergies Home medications: Occasionally Tylenol, Robitussin and ibuprofen Hospital course: On 04/11/25, the patient was seen and examined at the bedside. ERS is elevated. COVID and influenza are negative. Today, the patient reports SOB, cough with yellow phlegm, sore throat and runny nose. No fever was reported during the night. The patient continues with IV antibiotic ceftriaxone, Mednebs q4hr and methylprednisolone. We will continue following the progress of this patient closely. ROS: Constitutional: No: Fever, Chills, Sweats, Malaise, Other Eyes: bilateral burry vision and double vision. Vision change, Conjunctivae inflammation, Eyelid inflammation, Other, Redness ENT: No: Ear pain, Ear discharge, Nose pain, Nose discharge, Nose congestion, Mouth pain, Mouth swelling, Throat pain, Throat swelling, Other Respiratory: Yes: SOB, cough with clear phlegm, sore throat and runny nose. No: Hemoptysis, Pleuritic Pain, Sputum, Wheezing Cardiovascular: No: Chest Pain, Palpitations, Orthopnea, Paroxysmal Noc. Dyspnea, Edema, Lt Headedness, Other Gastrointestinal: No: Nausea, Vomiting, Abdominal Pain, Diarrhea, Constipation, Melena, Hematochezia, Other Genitourinary: No Dysuria, No Frequency, No Incontinence, No Hematuria, No Retention, No Other Musculoskeletal: No: other, neck pain, shoulder pain, arm pain, back pain, hand pain, leg pain, foot pain Skin: No: Rash, Lesions, Jaundice, Bruising, Other Neurological: No: Weakness, Numbness, Incoordination, Change in speech, Confusion, Seizures, Other Objective vital signs Vital Sign Date Time Temp Pulse Resp B/P (MAP) Pulse Ox O2 Delivery O2 Flow Rate FiO2 04/11/25 09:43 97 Room Air* 0 21 04/11/25 09:00 97.9 116 18 137/88 (104) 97.9 Total Intake and Output 04/10/25 04/10/25 04/11/25 15:00 23:00 07:00 Intake Total 1650 ml 150 ml 1800 ml Balance 1650 ml 150 ml 1800 ml medications Current Medications Medications Dose Ordered Sig/Kayla Route Start Time Stop Time Status Last Admin Dose Admin Sodium Chloride 10 ml Q8HR IV 04/10/25 14:00 04/11/25 05:39 10 ML Ondansetron HCl 4 mg Q4HP PRN IV 04/10/25 09:45 Enoxaparin Sodium 40 mg DAILY SC 04/10/25 10:00 04/10/25 12:05 40 MG Acetaminophen 650 mg Q6HP PRN PO 04/10/25 09:45 Nitroglycerin 0.4 mg Q5MINP PRN 04/10/25 09:45 Morphine Sulfate 2 mg Q30M PRN IV 04/10/25 09:45 Albuterol 2.5 mg Q4HWA NEB 04/10/25 10:00 04/11/25 05:35 2.5 MG Ipratropium [place] 0.5 mg Q6HPRN PRN NEB 04/10/25 09:45 04/11/25 00:44 0.5 MG Methylprednisolone Sodium Succinate 40 mg DAILY IV 04/10/25 10:00 04/10/25 12:05 40 MG Azithromycin 250 ml @ 125 mls/hr DAILY IV 04/11/25 10:00 Sodium Chloride 1,000 ml @ 75 mls/hr [id number] IV 04/10/25 10:45 04/10/25 21:56 75 MLS/HR Ergocalciferol 50,000 unit Q7D PO 04/10/25 11:45 04/10/25 12:05 50,000 UNIT Ceftriaxone Sodium 50 ml @ 100 mls/hr DAILY@09 IV 04/12/25 09:00 Examination General Appearance: Alert, Oriented X3, Cooperative, mild distress HEENT: Atraumatic, PERRLA, EOMI, Mucous membr. moist/pink Respiratory: normal lung expansion, mild wheezing on the upper lobes. Cardiovascular: Regular rate, Normal S1, Normal S2, No murmurs, no chest pain on palpation of the chest. Abdominal: Normal bowel sounds, Soft, No tenderness, No hepatospenomegaly, No masses Extremities: No clubbing, No cyanosis, No edema, Normal pulses, No tenderness/swelling Skin: No breakdown, No significant lesion Neuro: Normal gait, Normal speech, Strength at 5/5 X4 ext, Normal tone, Sensation intact, Cranial nerves 3-12 NL, Reflexes 2+ Psych/Mental Status: Mental status NL, Mood NL laboratory and microbiology Laboratory Tests 04/11/25 05:26 Test 04/11/25 05:26 Range/Units Serum Glucose 107 H 74-106 mg/dL Microbiology Date/Time Source Procedure Growth Status 04/10/25 08:55 Blood Blood Culture - Preliminary NO GROWTH AFTER 24 HOURS OF INCUBATION. Resulted Problem List/Assessment/Plan Problem List/Assessment/Plan #Sepsis likely due to acute pneumonia Gram-positive /negative #Acute hypoxemic respiratory failure like due to pneumonia Gram-positive /negative #Acute asthma exacerbation #Acute pneumonia Gram-positive /negative #Acute Bronchitis Rule out COVID/flu Ruled out pulmonary embolism IV fluids with the sepsis protocol Azithromycin Methylprednisolone 40 mg IV daily Med-nebs Respiratory and blood cultures #Ruled out PE #Ruled out DVT Elevated D-dimer CT angio, no PE but R middle lobe and L lower lobe infiltrates Pending rapid test #Vit D deficiency - Repleting #Obesity BMI 34.1 Counseling about healthy life style Diet Regular DVT prophylaxis: Lovenox GI prophylaxis Protonix Code status: full code Disposition: [facility] PCP: Ileana Pham Patient's status and plan discussed with the patient >30min. Case discussed with Dr. Peres Plan discussed with: Patient My Orders My Orders Orders - TSERING GARCIA Procedure Category Date Status Time Pantoprazole PHA 04/12/25 Verified (Protonix) 10:00 Complete Blood Count LAB 04/12/25 Verified 04:00 Visit Coding STANDARD RES Billing Provider: TERESA CHAU MD Date of Service if different f: Apr 11, 2025 Common Visit Codes: [id number] INP/OBS CARE(HIGH) TSERING GARCIA RESIDENT Apr 11, 2025 10:32
[2025-04-11] MEDS: AZITHROMYCIN 500MG/250ML 250 ML IV SCH (10:34)
--- NOTE | 2025-04-11 14:54 | DVH ---
US BiLat Lower DVT HISTORY: r/o DVT COMPARISON: VAS VENOUS LOWER EXTREM BILAT (DVT) on DOS: 08/05/24 TECHNIQUE: Realtime grayscale, color flow, and Doppler ultrasound images of the deep venous structures with spectral waveform analysis were obtained. Doppler spectral waveform analysis of the bilateral lower extremity veins was performed. FINDINGS: Right Lower Extremity: Right common femoral vein: Normal compressibility and flow. Right femoral vein: Normal compressibility and flow. Right popliteal vein: Normal compressibility and flow. Left Lower Extremity: Left common femoral vein: Normal compressibility and flow. Left femoral vein: Normal compressibility and flow. Left popliteal vein: Normal compressibility and flow. IMPRESSION: NO SONOGRAPHIC EVIDENCE FOR DEEP VENOUS THROMBOSIS IN THE BILATERAL LOWER EXTREMITY VEINS.
[2025-04-11] MEDS: ACETAMINOPHEN 325 MG TAB PO PRN (19:37)
[2025-04-12] VITALS (9 sets, daily range): BP systolic 122–142; BP diastolic 72–92; PULSE 64–99; RESP 16–18; TEMP 36.3; O2SAT 97–99
[2025-04-12 07:53] LABS: Hematocrit 30.9 % (36.0-46.0); Hemoglobin 10.2 g/dL (12.2-16.2); Mean Corpuscular Hemoglobin 24.9 pg (28.0-32.0); Mean Corpuscular Volume 75.5 fL (80.0-100.0); Nucleated Red Blood Cells % 0.1 %
[2025-04-12] MEDS: PANTOPRAZOLE 40 MG/10 ML VIAL INJ IV SCH (10:00)
[2025-04-12] MEDS ORDERED: PROM1SOL4 PO (10:17)
[2025-04-12] MEDS ORDERED: AZIT-185 PO (10:17)
[2025-04-12] MEDS ORDERED: ALBUAER3 IN (10:17)
[2025-04-12] MEDS ORDERED: BUDE0.5S IN (10:17)
--- NOTE | 2025-04-12 10:35 | DVHDSRES ---
Discharge Summary Date of Admission Resident Creating Document: TSERING GARCIA RESIDENT Apr 10, 2025 at 09:45 Date of Discharge: Apr 12, 2025 Admitting Diagnosis #Sepsis likely due to acute pneumonia Gram-positive /negative #Acute hypoxemic respiratory failure like due to pneumonia Gram-positive /negative #Acute asthma exacerbation #Acute pneumonia Gram-positive /negative #Acute Bronchitis #Ruled out PE #Ruled out DVT Wounds: No wounds on admission Labs/Diagnostic Data: Laboratory Results Test 04/12/25 06:29 04/11/25 05:26 04/10/25 12:15 04/10/25 10:17 White Blood Count 16.5 10^3/uL (4.4-10.8) Red Blood Count 4.09 10^6/uL (4.0-5.20) Hemoglobin 10.2 g/dL (12.2-16.2) Hematocrit 30.9 % (36.0-46.0) Mean Corpuscular Volume 75.5 fL (80.0-100.0) Mean Corpuscular Hemoglobin 24.9 pg (28.0-32.0) Mean Corpuscular Hemoglobin Concent 32.9 g/dL (32.0-36.0) Red Cell Distribution Width 17.8 % (11.8-14.3) Platelet Count 388 10^3/uL (140-450) Mean Platelet Volume 8.0 fL (6.9-10.8) Neutrophils (%) (Auto) 74.0 % (37.0-80.0) Lymphocytes (%) (Auto) 19.2 % (10.0-50.0) Monocytes (%) (Auto) 5.8 % (0.0-12.0) Eosinophils (%) (Auto) 0.6 % (0.0-7.0) Basophils (%) (Auto) 0.4 % (0.0-2.0) Neutrophils # (Auto) 12.2 10 ^3/uL (1.6-8.6) Lymphocytes # (Auto) 3.2 10 ^3/uL (0.4-5.4) Monocytes # (Auto) 1.0 10 ^3/uL (0-1.3) Eosinophils # (Auto) 0.1 10 ^3/uL (0-0.8) Basophils # (Auto) 0.1 10 ^3/uL (0-0.2) Nucleated Red Blood Cells 0.1 % Erythrocyte Sedimentation Rate 33 mm/hr (0-20) Sodium Level 140 mmol/L (136-145) Potassium Level 3.8 mmol/L (3.5-5.1) Chloride Level 106 mmol/L (98-107) Carbon Dioxide Level 23 mmol/L (20-31) Anion Gap 11 (5-15) Blood Urea Nitrogen 8 mg/dL (9-23) Creatinine 0.60 mg/dL (0.550-1.02) Glomerular Filtration Rate Calc 122 mL/min (>90) BUN/Creatinine Ratio 13.3 (10.0-20.0) Serum Glucose 107 mg/dL (74-106) Hemoglobin A1c 5.4 % A1C (<5.7) Calcium Level 8.5 mg/dL (8.7-10.4) Magnesium Level 2.1 mg/dL (1.6-2.6) Total Bilirubin 0.3 mg/dL (0.2-1.0) Aspartate Amino Transferase (AST) 19 U/L (13-40) Alanine Aminotransferase (ALT) 28 U/L (7-40) Alkaline Phosphatase 67 U/L (46-116) C-Reactive Protein High Sensitivity 16.49 mg/dL (<1.0) B-Type Natriuretic Peptide 115.38 pg/mL (0-100) Total Protein 7.2 g/dL (5.7-8.2) Albumin 4.0 g/dL (3.2-4.8) Thyroid Stimulating Hormone (TSH) 1.31 uIU/mL (0.55-4.78) Lactic Acid Level 1.9 mmol/L (0.4-2.0) Influenza Type A Antigen Negative (Negative) Influenza Type B Antigen Negative (Negative) SARS-CoV-2 Antigen (Rapid) Negative (NEGATIVE) Test 04/10/25 09:04 04/10/25 06:51 Urine Color Yellow (Yellow) Urine Clarity Clear (Clear) Urine pH 8.0 (5.0-9.0) Urine Specific [place] 1.020 (1.001-1.035) Urine Protein Negative (Negative) Urine Ketones Negative (Negative) Urine Blood 1+ /uL (Negative) Urine Nitrite Negative (Negative) Urine Bilirubin Negative (Negative) Urine Urobilinogen Normal mg/dL (Negative) Urine Leukocyte Esterase Negative /uL (Negative) Urine RBC 9 /hpf (0 - 4) Urine Microscopic WBC 1 /HPF (0-5) Urine Squamous Epithelial Cells Few /hpf (<5) Urine Bacteria None seen /hpf (None Seen) Urine Glucose Normal mg/dL (Normal) Urine Test Negative (Negative) Urine Opiates Screen Neg (NEGATIVE) Urine Fentanyl Screen Neg (NEGATIVE) Urine Barbiturates Screen Neg (NEGATIVE) Urine Phencyclidine Screen Neg (NEGATIVE) Urine Amphetamines Screen Neg (NEGATIVE) Urine Benzodiazepines Screen Neg (NEGATIVE) Urine Cocaine Screen Neg (NEGATIVE) Urine Cannabinoids Screen Neg (NEGATIVE) D-Dimer, Quantitative 1.43 mg/L FEU (0.0-0.49) Direct Bilirubin < 0.1 mg/dL (<0.3) Vitamin D 25-Hydroxy 24.1 ng/mL (30.0-100) Other Laboratory Tests 04/12/25 06:29 04/11/25 05:26 Brief Hx & Hospital Course: PHI: Ms. Carolina Peterson is a 34 years old female with history of childhood asthma and bilateral clubfoot. [facility] with chief complaint of 3 days of shortness of breath and wet cough. On further questioning, the patient reported that 1 week ago she had flu like symptoms: wet cough, runny nose and chills. She also reported chronic foot swelling for related to her bilateral clubfoot condition but notes her current swelling is different from her baseline. Patient reported sick contact (her grandmother has flu like symptoms as well). She has a history of asthma that typically flares during flu season advance pollen levels are high but she has not been using inhaler. De patient denies chest pain, palpitation, abdominal pain, nausea, vomit, diarrhea or other symptoms. The patient was admitted for further diagnosed and management. PMH: Asthma and bilateral clubfoot PSH: Not significant Family history: Blood clots in grandfather Social history: Lives at home. Denies smoking, alcohol and other drug abuse Allergies: No known allergies Home medications: Occasionally Tylenol, Robitussin and ibuprofen Hospital course: During [facility], the patient was evaluated and assessed at bedside. VS, labs and chart was reviewed every day. On 04/11/25, ERS was elevated. COVID and influenza report were negative. The patient reported SOB, cough with yellow phlegm, sore throat and runny nose. The patient was placed on with IV antibiotic ceftriaxone, Mednebs q4hr and methylprednisolone. Then due to improvement the methylprednisolone was discontinued. On her second day of admission The patient progressed satisfactorily, no sob or fever; she tolerated well the diet. On 04/12/25, due to significant clinical improvement the patient will be discharge home, she will continue oral antibiotics: Azitromicyn, albuterol inhaler and pulmocrit. The patient will follow up with PCP, d/c clinic and transport nurse 1 one week. All patient's question were answered, warning signs and when to return to the ED recommendations were given, patient agreed to understanding. ROS: Constitutional: No: Fever, Chills, Sweats, Malaise, Other Eyes: No Vision change, Conjunctivae inflammation, Eyelid inflammation, Other, Redness ENT: No: Ear pain, Ear discharge, Nose pain, Nose discharge, Nose congestion, Mouth pain, Mouth swelling, Throat pain, Throat swelling, Other Respiratory: No: SOB, cough with clear phlegm, sore throat and runny nose. No: Hemoptysis, Pleuritic Pain, Sputum, Wheezing Cardiovascular: No: Chest Pain, Palpitations, Orthopnea, Paroxysmal Noc. Dyspnea, Edema, Lt Headedness, Other Gastrointestinal: No: Nausea, Vomiting, Abdominal Pain, Diarrhea, Constipation, Melena, Hematochezia, Other Genitourinary: No Dysuria, No Frequency, No Incontinence, No Hematuria, No Retention, No Other Musculoskeletal: No: other, neck pain, shoulder pain, arm pain, back pain, hand pain, leg pain, foot pain Skin: No: Rash, Lesions, Jaundice, Bruising, Other Neurological: No: Weakness, Numbness, Incoordination, Change in speech, Confusion, Seizures, Other Physical exam: General Appearance: Alert, Oriented X3, Cooperative, mild distress HEENT: Atraumatic, PERRLA, EOMI, Mucous membr. moist/pink Respiratory: normal lung expansion, no wheezing. Cardiovascular: Regular rate, Normal S1, Normal S2, No murmurs, no chest pain on palpation of the chest. Abdominal: Normal bowel sounds, Soft, No tenderness, No hepatospenomegaly, No masses Extremities: No clubbing, No cyanosis, No edema, Normal pulses, No tenderness/swelling Skin: No breakdown, No significant lesion Neuro: Normal gait, Normal speech, Strength at 5/5 X4 ext, Normal tone, Sensation intact, Cranial nerves 3-12 NL, Reflexes 2+ Psych/Mental Status: Mental status NL, Mood NL Plan: Regular diet Albuterol Inhaler Q4hrs prn for sob Zpack po daily for 5 days Pulmocrit inhaler BID F/u with PCP in 1 week F/U with pulmonology in 1 week F/U with d/c clinic within 72 hrs. Operations or Procedures PROCEDURE(s): CXRP - CHEST PORTABLE REASON: sob ORDER NUMBER(s): [id number], ACCESSION NUMBER(s): [id number] CHEST RADIOGRAPH INDICATION: sob TECHNIQUE: Single frontal view of the chest was obtained. COMPARISON: CT CT ANGIO CHEST CONTRAST on DOS: 06/13/23 FINDINGS: No focal consolidation. No significant pleural effusion. No pneumothorax. Stable cardiomediastinal silhouette. IMPRESSION: No acute pulmonary process. EDURE(s): CTACH - CT ANGIO CHEST CONTRAST REASON: pe ORDER NUMBER(s): [id number], ACCESSION NUMBER(s): [id number] CT angiogram of the chest INDICATION: Shortness of breath. Rule out pulmonary embolism TECHNIQUE: Serial axial images were performed through the chest using 3 mm slice thickness and interval following the administration of 100 mL of Omnipaque 350 IV contrast. Multiplanar MIP reconstruction imaging was provided and reviewed at the workstation FINDINGS: On lung windows there is some infiltrate present in the right middle lobe and in the left lower lobe The heart size is enlarged without pericardial effusion No filling defects in the central branches of the pulmonary arteries. No enlarged axillary hilar or mediastinal lymph nodes. Images of the upper abdomen reveal no bony abnormalities IMPRESSION: 1. No central pulmonary emboli 2. Right middle lobe and left lower lobe infiltrates. Computed Tomographic Radiation Dosimetry Report: Total CTDI vol = 26 mGy Total DLP = 870 mGy-cm All CT scans at this medical facility are performed using dose modulation techniques as appropriate to a performed exam including the following: Automated exposure control was utilized; adjustment of the MA and/or KvP according to patient size; and use of iterative reconstruction technique. PROCEDURE(s): BLDVT - BiLat Lower DVT REASON: r/o DVT ORDER NUMBER(s): [id number], ACCESSION NUMBER(s): [id number] US BiLat Lower DVT HISTORY: r/o DVT COMPARISON: VAS VENOUS LOWER EXTREM BILAT (DVT) on DOS: 08/05/24 TECHNIQUE: Realtime grayscale, color flow, and Doppler ultrasound images of the deep venous structures with spectral waveform analysis were obtained. Doppler spectral waveform analysis of the bilateral lower extremity veins was performed. FINDINGS: Right Lower Extremity: Right common femoral vein: Normal compressibility and flow. Right femoral vein: Normal compressibility and flow. Right popliteal vein: Normal compressibility and flow. Left Lower Extremity: Left common femoral vein: Normal compressibility and flow. Left femoral vein: Normal compressibility and flow. Left popliteal vein: Normal compressibility and flow. IMPRESSION: NO SONOGRAPHIC EVIDENCE FOR DEEP VENOUS THROMBOSIS IN THE BILATERAL LOWER EXTREMITY VEINS. Condition at Discharge: Stable Final Diagnosis/Problems List #Sepsis likely due to acute pneumonia Gram-positive /negative #Acute hypoxemic respiratory failure like due to pneumonia Gram-positive /negative #Acute asthma exacerbation #Acute pneumonia Gram-positive /negative #Acute Bronchitis #Ruled out PE #Ruled out DVT #Vit D deficiency #Obesity Discharge Disposition: Home SNF Discharge Will this Physician continue t: No Discharge Instruct/Medications Diet: Regular Activity: Light activity Follow Up/Referral: F/U with PCP in 1 week D/C clinic [employer] T[employer] referral Dr. Price Medications: Albuterol inhailer Q4hr prn for SOB Pulmocrit 200mcg inhahiler bid Azitromicyn 500mg po daily for 5 days Scheduled Acetaminophen (Tylenol Extra Strength Fo), 650 MG PO TID Albuterol Sulfate (Ventolin Mdi), 90 MCG IN Q4HR Azithromycin (Zithromax), 1 PACK PO ONCE Azithromycin (Zithromax Tablet), 500 MG PO DAILY Budesonide (Inhalation) (Budesonide), 0.5 MG IN BID Cephalexin Monohydrate (Cephalexin), 500 MG PO Q8HR Lamotrigine (Lamictal), 100 MG OR QHS, (Reported) Methylprednisolone (Medrol Dosepak), 4 MG PO UD Scheduled PRN Ibuprofen Micronized (Ibuprofen), 800 MG PO TID PRN Ondansetron Odt 4MG Tab (Zofran Po), 4 MG PO Q8HPRN PRN Promethazine-Dm (Promethazine Dm 6.25-15 mg/5Ml), 5 ML PO TID PRN Miscellaneous Medications Albuterol (Albuterol), (Reported) [Qvar], (Reported) Discontinued Medications Risperidone (Risperidone), 3 MG OR BID, (Reported) Risperidone (Risperidone), 2 MG OR QHS, (Reported) Sertraline Hcl (Zoloft), 100 MG OR QAM, (Reported) [Abilify], (Reported) [Celexa], (Reported) Discharge Statement: "Patient was advised to return to the ER or call 911 if any headaches, dizziness, shortness of breath, chest pain, abdominal pain, bleeding, fevers, or worsening of medical condition. Patient was counseled about treatment plan, medications, possible side effects, patientverbalized understanding. All questions were answered to the best of my ability. This discharge took greater then 30 minutes in planning, reviewing documentation, counseling the patient, and discussing with other team members." Discharge Care Plan Instructions Take Rx medications, Notify MD of any issues, Keep list of meds w/ you, Do not drink ETOH/smoke, Call 911 in an emergency, F/U w/ PCP ASSESSMENT ASSESSMENT Assessment #Sepsis likely due to acute pneumonia Gram-positive /negative #Acute hypoxemic respiratory failure like due to pneumonia Gram-positive /negative #Acute asthma exacerbation #Acute pneumonia Gram-positive /negative #Acute Bronchitis #Ruled out PE #Ruled out DVT #Vit D deficiency #Obesity Diet Regular Disposition: home, no needs PCP: Ileana Pham Patient's status and discharge plan discussed with the patient >30min. Case discussed with Dr. Peres Visit Coding STANDARD RES Billing Provider: TERESA CHAU MD Date of Service if different f: Apr 12, 2025 Common Visit Codes: 42411-SMY/OBS DISCH DAY >30min JOSETSERING RESIDENT Apr 12, 2025 10:34
== END 2025-04-12 11:00 | disposition home or self-care (01) | DRG 720 ==
LOC: ER 06:15 → OVERFLOW 09:45 → WEST WING 18:00
PROVIDERS: ADMIT Student in an Organized Health Care Education/Training Program; ATTEND Student in an Organized Health Care Education/Training Program
DX: A41.50 Gram-negative sepsis, unspecified (principal); J96.01 Acute respiratory failure with hypoxia; J15.69 Pneumonia due to other Gram-negative bacteria; J15.9 Unspecified bacterial pneumonia; E66.9 Obesity, unspecified; F32.A Depression, unspecified; J45.901 Unspecified asthma with (acute) exacerbation; J20.9 Acute bronchitis, unspecified; Z68.34 Body mass index [BMI] 34.0-34.9, adult; Z20.822 Contact with and (suspected) exposure to COVID-19; J98.4 Other disorders of lung; F41.9 Anxiety disorder, unspecified; E55.9 Vitamin D deficiency, unspecified
CPT/HCPCS: 36415; 71045; 71275; 80048; 80053; 80076; 80307; 81001; 81025; 82306; 83036; 83605; 83735; 83880; 84443; 85025; 85379; 85652; 86141; 87040; 87426; 87804; 93970; 94640; 96365; G0378